=== PATIENT | male | born 1955 | race Caucasian/White ===

== ENCOUNTER 2021-03-13 11:02 | Outpatient (REF) | payer OTHER, SELFPAY ==
[2021-03-13 13:57] LABS: MANUAL DIFF FLAG NO
[2021-03-13 14:11] LABS: Basophils Percent Auto 0.2 % (0-2); Eosinophils Percent Auto 0.1 % (0-4); Hematocrit 45.3 % (42-52); Hemoglobin 14.7 g/dl (14.0-18.0); Imm Gran Abs Auto 0.12 X10*3/uL (0.00-0.03); Imm Gran Pct Auto 1.5 % (0.0-0.4); Lymphocytes Absolute Auto 0.8 X10*3/uL (1.2-4.9); Lymphocytes Percent Auto 9.2 % (20-40); Mean Corpuscular HGB Conc 32.5 g/dl (31.0-36.0); Mean Corpuscular Hemoglobin 29.2 pg (27.0-33.0); Mean Corpuscular Volume 89.9 fL (80-98); Mean Platelet Volume 10.5 fL (9.4-12.4); Monocytes Absolute Auto 0.6 X10*3/uL (0.1-1.2); Monocytes Percent Auto 6.8 % (2-11); Neutrophils Absolute Auto 6.8 X10*3/uL (2.0-8.3); Neutrophils Percent Auto 82.2 % (45-73); Platelet Count 247 X10*3/uL (160-400); Red Blood Count 5.04 X10*6/uL (4.60-5.80); Red Cell Distribution Width 13.2 % (11.0-16.0); White Blood Count 8.2 X10*3/uL (4.8-10.8)
[2021-03-13 14:19] LABS: Alanine Aminotransferase 45 U/L (0-40); Alkaline Phosphatase 67 U/L (39-117); Anion Gap 12 (12-20); Aspartate Amino Transferase 29 U/L (5-37); Bilirubin Total 0.8 mg/dL (0.0-1.0); Blood Urea Nitrogen 9 mg/dL (9-16); Calcium 9.2 mg/dL (8.4-10.2); Carbon Dioxide 27 mmol/L (22-29); Chloride 107 mmol/L (96-108); Cholesterol 213 mg/dL; Estimated Glomerular Filt Rate > 60; Glucose Fasting 110 mg/dL (60-99); HDL Cholesterol 80 mg/dL; LDL Cholesterol Calculated 120 mg/dl; Potassium 4.4 mmol/L (3.3-5.1); Sodium 142 mmol/L (135-145); Total Protein 7.6 g/dL (6.5-8.0); Triglycerides 67 mg/dL; Uric Acid 5.4 mg/dL (3.4-7.0)
== END 2021-03-13 11:03 | disposition home or self-care (01) ==
LOC: HO.10HDL 11:02
PROVIDERS: Visit Provider Internal Medicine
DX: Z00.00 Encounter for general adult medical examination without abnormal findings (principal)
CPT/HCPCS: 36415; 80053; 80061; 84550; 85025

== ENCOUNTER 2022-07-09 10:23 | Outpatient (REF) | payer OTHER, SELFPAY ==
--- NOTE | ~2022-07-09 | XR_ITS ---
EXAMINATION: XR SINUSES CLINICAL INFORMATION: Sinus pressure COMPARISON: None TECHNIQUE: 4 views. FINDINGS: Paranasal sinuses appear clear without air-fluid levels. No fractures are identified. No radiodense foreign bodies. XR/XR sinus min 3V IMPRESSION: Unremarkable examination.
--- NOTE | ~2022-07-09 | XR_ITS ---
EXAMINATION: XR CHEST CLINICAL INFORMATION: Cough. COMPARISON: X-ray 11/05/2018 TECHNIQUE: 2 views of the chest were obtained. FINDINGS: The cardiomediastinal silhouette is within normal limits. The lungs are well expanded. There is hazy opacity in the medial aspect right lung base, appearing more prominent as compared to previous, which could represent a subtle infiltrate in this region. Otherwise, no additional focal consolidation, edema, or effusion. No pneumothorax. No acute osseous abnormality. XR/XR chest 2V IMPRESSION: Hazy opacity in the medial aspect right lung base could represent a subtle infiltrate. Recommendation is for a follow-up chest series to be obtained following treatment and/or resolution of symptoms to assure resolution of this appearance.
== END 2022-07-09 10:24 | disposition home or self-care (01) ==
LOC: HO.XRAY 10:23
PROVIDERS: PCP Internal Medicine; Visit Provider Internal Medicine
DX: R05.9 Cough, unspecified (principal); R09.81 Nasal congestion
CPT/HCPCS: 70220; 71046

== ENCOUNTER 2024-12-01 11:26 | Outpatient (AMB) | payer OTHER, MEDICARE, SELFPAY ==
--- NOTE | 2024-12-01 11:19 | MHC.PC.OV ---
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 He has not been seen in the office since 06/2022. Hypertension-continues on lisinopril 5 mg daily. Blood pressure in the office today 120/82. HLD- continues on simvastatin 20mg daily. Last LDL 120 Gout- no recent flares. continues on allopurinol Asthma- taking singulair with occassional albuterol use. Reporting a chronic productive cough ongoing for several years with occasional wheezing. No sob/wheezing. No chest pain. No exposure to noxious substances. No hx smoking. Concerns: Reporting 2-3 times per month experiencing globus sensation when swallowing resulting in vomiting. Belching helps with symptoms. No other dysphagia. Denies heartburn. Itchy ears- ongoing several months. No otalgia, otorrhea. He does have history of environmental allergies but has not taken any antihistamines. He has used [id number]-[id number]-[id number] eardrops without relief reports this is constant Tinnitus-denies any hearing loss, vertigo, headaches, otalgia. No prolonged exposure to loud noises Health maintenance: Last screening colonoscopy age 61 per the patient. Report unavailable for review. He reports normal findings suggesting 10 year follow-up Due for screening PSA ROS: General: No fevers, malaise, unintentional weight loss HEENT: No blurred vision, diplopia. No sore throat, nasal congestion, rhinorrhea, sinus pain, ear pain. See HPI Cardiovascular: No chest pain, palpitations, or leg edema Respiratory: See HPI GI: No abdominal pain, nausea. See HPI : No dysuria, hematuria, increased urinary frequency, decreased urinary output Neuro: No headaches, weakness, paresthesias Skin: No rashes or lesions EXAM: Constitutional - Awake and Alert, No apparent distress Eyes - PERRLA, EOMI. Bilateral corneal clouding, corneal arcus Cardiovascular - S1S2, RRR, No edema Respiratory - Normal lung expansion, Normal respiratory effort, No respiratory distress, CTA bilaterally Extremities - no calf tenderness bilaterally, no swelling Skin - Warm/Dry Neurological - Alert & oriented x3, CN II-XII in tact, 5/5 strength BUE and BLE Psychological - Appropriate affect itchy eats, ringing. OTC drops not helping x3 months constant. no hearing loss, vertigo. does have allergies. occ claritin constant cough- productive. no xob, wheezing ongoing x several years. used albuterol several times. occ wheeze. no smoking hx. no exposures to noxious substances heartburn every 2-3 weeks, belching globus sensation then vomiting. [facility] Medical History (Updated 12/01/24 @ 12:18 by DALILA Rocha) Hyperlipidemia Asthma Gout Hypertension Questionnaire PHQ-9 Over the last 2 weeks, how often have you been bothered by any of the following problems? 1. Little interest or pleasure in doing things: not at all 2. Feeling down, depressed, or hopeless: not at all 3. Trouble falling or staying asleep, or sleeping too much: several days 4. Feeling tired or having little energy: several days 5. Poor appetite or overeating: not at all 6. Feeling bad about yourself - or that you are a failure or have let yourself or your family down: not at all 7. Trouble concentrating on things, such as reading the newspaper or watching television: not at all 8. Moving or speaking so slowly that other people could have noticed. Or the opposite - being so fidgety or restless that you have been moving around a lot more than usual: not at all 9. Thoughts that you would be better off or of hurting yourself in some way: not at all Total score: 2 Source: Developed by Drs. Rambo Chaudhary, Lisset Dean, Arsenio Galo and colleagues, with an educational yessi from [employer]. Thrive Questionnaire Date Thrive assessed: 12/01/24 I am a: Patient What is your living situation today?: I have a steady place to live Within the past 12 months, did the food you bought not last and you didn't have the money to get more?: Never true Within the past 12 months, did you worry whether your food would run out before you got money to buy more?: Never true Do you have trouble paying for medicines?: No Do you have trouble getting transportation to medical appointments?: No Do you have trouble paying your heating and electricity bill?: No Do you have trouble taking care of your child, family member or friend?: No Do you have trouble with day-to-day activities such as bathing, preparing meals, shopping, managing finances, etc.?: No Are you currently unemployed and looking for a job?: No Are you interested in more education?: No Please select the resources that you would like help with: None THRIVE Score: 0 PEG-7 AMB Questionnaire PEG-7 Date PEG - 7 assessed: 12/01/24 Feeling nervous, anxious, or on edge: 0 = Not at all Not being able to stop or control worryin = Not at all Worrying too much about different things: 0 = Not at all Trouble relaxin = Not at all Being so restless that it is hard to sit still: 0 = Not at all Becoming easily annoyed or irritable: 0 = Not at all Feeling afraid as if something awful might happen: 0 = Not at all Total PEG-7 score (0-4 normal; 5-9 mild; 10-14 moderate; 15-21 severe): 0 Source: Developed by Drs. Rambo Chaudhary, Lisset Dean, Arsenio Galo and colleagues, with an educational yessi from [employer]. Physical exam (Primary Care) Vital Signs: Last Vital Signs Temp 97.7 F 12/01/24 11:32 Pulse 116 H 12/01/24 11:32 Resp 16 12/01/24 11:32 BP 120/82 12/01/24 11:32 Pulse Ox 98 12/01/24 11:32 Oxygen Delivery Method Room Air 12/01/24 11:32 BMI result Body Mass Index 33.1 PHQ-9: PHQ-9 Score PHQ-9: Total score 2 12/01/24 12:10 Thrive Assessment: Date of Thrive Assessment Date Thrive assessed 12/01/24 12/01/24 11:19 Coding Level of Care Code New Pt Level 4 (36165) Complex EM visit Add On G2211 Diagnoses Hypertension I10 Gout M10.9 Asthma J45.909 Hyperlipidemia E78.5 Refractory chronic cough R05.3 Corneal clouding H17.9 Tinnitus H93.19 Globus sensation R09.A2 Assessment & Plan Assessment & Plan (1) Hypertension: Code(s): I10 - Essential (primary) hypertension Category: Medical Plan: Controlled. Continue lisinopril 5 mg daily. Low-sodium diet (2) Gout: Code(s): M10.9 - Gout, unspecified Category: Medical Plan: Stable. Continue allopurinol 100 mg b.i.d.. (3) Asthma: Code(s): J45.909 - Unspecified asthma, uncomplicated Category: Medical Plan: Given chronic cough, question if this is actually COPD. He can continue Singulair. Will also prescribe Breo inhaler and can use albuterol as needed. PFT ordered. (4) Hyperlipidemia: Code(s): E78.5 - Hyperlipidemia, unspecified Category: Medical Plan: Lipid panel o ordered. Continue simvastatin (5) Refractory chronic cough: Code(s): R05.3 - Chronic cough Category: Medical Plan: Chronic productive cough. Less likely to be related to STEVEN inhibitors given productive nature. Question possible diagnosis of COPD. Referred for PFT. Prescribed Breo inhaler and can use albuterol only as needed for shortness of breath and wheezing. Can continue Singulair. Again given chronicity, we will also check chest CT (6) Corneal clouding: Code(s): H17.9 - Unspecified corneal scar and opacity Category: Medical Plan: Denies any vision changes, however appears consistent with possible cataracts. Referred to Ophthalmology. Given corneal arcus, will also assess liver function and lipids. (7) Tinnitus: Code(s): H93.19 - Tinnitus, unspecified ear Category: Medical Plan: Referred to ENT (8) Globus sensation: Code(s): R09.A2 - Foreign body sensation, throat Category: Medical Plan: Reviewed last barium swallow from 2019 which appears to have diagnosis of esophagitis. He is referred to Gastroenterology for further evaluation and management. Also prescribed omeprazole to be taken every morning. Can use a small amount of hydrocortisone cream to help with pruritus in the ears and recommend loratadine. Plan Follow-up in 6 months. Referrals as below. Labs to be completed today. Chest CT. Referred for PFT. Orders: Orders ANCA Vasculitides Today E78.5 - Hyperlipidemia, unspecified, I10 - Essential (primary) hypertension, R74.8 - Abnormal levels of other serum enzymes, Z12.5 - Encounter for screening for malignant neoplasm of prostate, Z13.1 - Encounter for screening for diabetes mellitus Basic Metabolic Panel Today E78.5 - Hyperlipidemia, unspecified, I10 - Essential (primary) hypertension, R74.8 - Abnormal levels of other serum enzymes, Z12.5 - Encounter for screening for malignant neoplasm of prostate, Z13.1 - Encounter for screening for diabetes mellitus Lipid Panel Today E78.5 - Hyperlipidemia, unspecified, I10 - Essential (primary) hypertension, R74.8 - Abnormal levels of other serum enzymes, Z12.5 - Encounter for screening for malignant neoplasm of prostate, Z13.1 - Encounter for screening for diabetes mellitus Liver Panel Today E78.5 - Hyperlipidemia, unspecified, I10 - Essential (primary) hypertension, R74.8 - Abnormal levels of other serum enzymes, Z12.5 - Encounter for screening for malignant neoplasm of prostate, Z13.1 - Encounter for screening for diabetes mellitus PFT pulmonary function test Today R05.3 - Chronic cough Hemoglobin A1c Today E78.5 - Hyperlipidemia, unspecified, I10 - Essential (primary) hypertension, R74.8 - Abnormal levels of other serum enzymes, Z12.5 - Encounter for screening for malignant neoplasm of prostate, Z13.1 - Encounter for screening for diabetes mellitus Prostate Specific Antigen Today E78.5 - Hyperlipidemia, unspecified, I10 - Essential (primary) hypertension, R74.8 - Abnormal levels of other serum enzymes, Z12.5 - Encounter for screening for malignant neoplasm of prostate, Z13.1 - Encounter for screening for diabetes mellitus CT chest wo IV con Today R05.3 - Chronic cough Referrals Gastroenterology Referral R09.A2 - Foreign body sensation, throat, R13.10 - Dysphagia, unspecified Ear/Nose/Throat Referral H93.19 - Tinnitus, unspecified ear Ophthalmology Referral H17.9 - Unspecified corneal scar and opacity, H18.419 - Arcus senilis, unspecified eye Medications: New fluticasone furoate-vilanterol 100-25 mcg/dose (Breo Ellipta) 1 inh inhalation DAILY 60 ea 2RF albuterol sulfate 90 mcg/actuation 2 puffs inhalation Q6H PRN 8.5 grams 0RF shortness of breath or wheezing hydrocortisone 1% (Anti-Itch (hydrocortisone)) Apply small amount on qtip and gently apply to external ears 1 appl topical BID PRN 28.4 grams 0RF skin irritation
[2024-12-01 11:32] VITALS: BP 120/82; PULSE 116; RESP 16; TEMP 36.5; O2SAT 98; BMI 33.1
[2024-12-01 12:20] VITALS: PULSE 91
--- OUTSIDE RECORDS SUMMARY | 2024-12-01 12:23 | XMS_ITS | Patient Health Record ---
[facility] Address [address] [address] Care Team Providers Care Python Engineer Name Role Phone Miya Driscoll Unavailable [phone] Reason For Referral No Information Medications Medication SIG (Take, Route, Frequency, Duration) Notes Start Date End Date Status Lipitor Active Indomethacin Active Percocet Active Problems No Known Problems Plan Of Treatment No Information Insurance Providers Payer Name Payer Address Payer Phone Subscriber Number Group Number Insured Name Patient Relationship to Insured Coverage Start Date Coverage End Date [facility] [address] [facility] [place] [phone] [id number] Galileo Ballard Self - patient is the insured Medical (General) History Medical History History ICD Code measles Gout asthma
== END 2024-12-01 12:02 | disposition home or self-care (01) ==
LOC: HO.HMCHD 11:26
PROVIDERS: PCP Internal Medicine; Visit Provider Physician Assistant
DX: I10 Essential (primary) hypertension (principal); M10.9 Gout, unspecified; J45.909 Unspecified asthma, uncomplicated; E78.5 Hyperlipidemia, unspecified; R05.3 Chronic cough; H17.9 Unspecified corneal scar and opacity; H93.19 Tinnitus, unspecified ear; R09.A2 Foreign body sensation, throat

== ENCOUNTER 2024-12-01 12:10 | Outpatient (REF) | payer OTHER, MEDICARE, SELFPAY ==
[2024-12-01 13:50] LABS: Alanine Aminotransferase 52 U/L (0-40); Albumin Level 4.3 g/dL (3.5-5.0); Anion Gap 13 (12-20); Aspartate Amino Transferase 50 U/L (5-37); Bilirubin Direct 0.5 mg/dL (0.0-0.5); Bilirubin Total 1.1 mg/dL (0.0-1.0); Blood Urea Nitrogen 14 mg/dL (9-16); Calcium 9.2 mg/dL (8.4-10.2); Carbon Dioxide 27 mmol/L (22-29); Chloride 105 mmol/L (96-108); Cholesterol 176 mg/dL (<200); Estimated Glomerular Filt Rate > 60; Glucose Random 106 mg/dL (60-115); HDL Cholesterol 78 mg/dL (>40); LDL Cholesterol Calculated 83 mg/dL (<100); Potassium 4.3 mmol/L (3.3-5.1); Sodium 141 mmol/L (135-145); Total Protein 7.8 g/dL (6.5-8.0); Triglycerides 78 mg/dL (<150)
[2024-12-01 13:56] LABS: Alkaline Phosphatase 65 U/L (39-117)
[2024-12-01 14:02] LABS: Estimated Average Glucose 108 mg/dL; Hemoglobin A1C 136.2891 umol/L; Hemoglobin A1c % 5.4 % (<6.0); Total Hemoglobin (HGBA1C) 3882.0766 umol/L
[2024-12-01 14:09] LABS: Prostate Specific Antigen < 0.10 ng/mL (<0.05-4.0)
== END 2024-12-01 12:11 | disposition home or self-care (01) ==
LOC: HO.10HDL 12:10
PROVIDERS: Visit Provider Physician Assistant
DX: E78.5 Hyperlipidemia, unspecified (principal); I10 Essential (primary) hypertension; R74.8 Abnormal levels of other serum enzymes; Z12.5 Encounter for screening for malignant neoplasm of prostate; Z13.1 Encounter for screening for diabetes mellitus
CPT/HCPCS: 36415; 80048; 80061; 80076; 83036; 84153

== ENCOUNTER 2025-02-18 10:49 | Outpatient (REF) | payer MEDICARE, OTHER, SELFPAY ==
--- OUTSIDE RECORDS SUMMARY | 2025-02-18 10:51 | XMS_ITS | Patient Health Record ---
[facility] Address [address] [place] [address] Care Team Providers Care Hse Specialist Name Role Phone Miya Driscoll Unavailable [phone] Reason For Referral No Information Medications Medication SIG (Take, Route, Frequency, Duration) Notes Start Date End Date Status Lipitor Active Indomethacin Active Percocet Active Problems No Known Problems Plan Of Treatment No Information Insurance Providers Payer Name Payer Address Payer Phone Subscriber Number Group Number Insured Name Patient Relationship to Insured Coverage Start Date Coverage End Date [facility] [address] [facility] [place] [phone] [id number] Galileo Ballard Self - patient is the insured Medical (General) History Medical History History ICD Code measles Gout asthma
--- OUTSIDE RECORDS SUMMARY | 2025-02-18 10:51 | XMS_ITS | Patient Health Record ---
Author Organization [facility] Address [address] [place] [address] Care Team Providers Care Helper Coordinator Name Role Phone Kiah (RETIRED) Kyle PITTMAN Primary Care Provide r Unavailable Rambo Stuart Unavailable [phone] Reason For Referral No Information Medications Medication SIG (Take, Route, Frequency, Duration) Notes Start Date End Date Status Lisinopril 5 MG 1 tablet Orally Once a day Active Allopurinol 100 MG TAKE 2 TABLETS BY MOUTH EVERY DAY Oral for 90 Active Montelukast Sodium 10 MG 1 tablet in the evening Orally Once a day Active [facility] Omeprazole 20 MG 1 tablet Orally Onc e a day started 11/2018 Active Aspirin Adult Low Dose 81 MG 1 tablet Orally Once a day Active Immunizations Vaccine Route Administration Date Status Comme nts Influenza Unknown 12/10/2018 Refused Social History Tobacco Use: Social History Observation Description Date Details (start date - stop date) Never Smoker NA - NA Tobacco Use/Smoking Question Answer Notes Patient is a nonsmoker Alcohol Screen Question Answer Notes Did you have a drink contain ing alcohol in the past year? Yes How often did you have a dri nk containing alcohol in the past year? 2 to 3 times a week (3 points) How many drinks did you have on a typical day when you were drinking in the past year? 5 or 6 drinks (2 points) How often did you have 6 or more drinks on one occasion in the past year? Never (0 point) Points 5 Interpretation Positive Section Notes: Nonsmoker; occ. alcohol Nonsmoker; drinks approx 6 b eers 5x/week Nonsmoker; drinks approx 6 b eers 5x/week Problems Problem Type SNOMED Code ICD Code Onset Dates Problem Status W/U Status Risk Notes Problem [id number] Encounter for screening for malignant neoplasm of colon (Z12.11) Active confirmed Problem 683903966 Gastroesophageal reflux disease with esophagitis (K21.0) Active confirmed Problem 753429440 Gastroesophageal reflux disease, esophagitis presence not specified (K21.9) Active confirmed Problem 69006844 Hiatal hernia (K44.9) Active confirmed Problem 224111348 Abnormal barium swallow (R93.3) Active confirmed Problem 892068113617593 Pre-procedural examination (Z01.818) Active confirmed Problem 90990542 Hypertension, unspecified type (I10) Active confirmed Plan Of Treatment Future Test Test Name Order Date COLONOSCOPY 12/23/2017 UPPER GI ENDOSCOPY 12/10/2018 Insurance Providers Payer Name Payer Address Payer Phone Subscriber Number Group Number Insured Name Patient Relationship to Insured Coverage Start Date Coverage End Date [facility] [address] [place] [phone] [id number] MICHELLE JORDAN Self - patient is the insured Medical (General) History Medical History History ICD Code Seasonal allergies Hypertension Colonoscopy in 08/2007--hyper plastic polyp, diverticulosis, internal hemorrhoids Gout Denies [place],DM,CVA,Lung disease,renal dise ase Asthma Neg. screening colonoscopy in 01/2018 GERD--upper endoscopy in Nov revealed some erosive esophagitis and a moderate-sized hiatal hernia--biopsies were negative for Steven's esophagus and gastric biopsies were negative for H. pylori Surgical History Surgery Date(Month/Year) Tonsillectomy 1961 Deviated septum repair 1981 Bunionectomy 2010 Prostate removal at [facility] 2012
--- NOTE | 2025-02-18 10:54 | PFT_ITS ---
Indication: Cough Spirometry FEV1 to FVC 78%; FEV1 2.98 L; FVC 3.84 L. No significant response to bronchodilators noted. Lung Volumes Total lung capacity 77% predicted; residual volume 69% predicted; expiratory reserve volume 64% predicted Diffusion Capacity DLCO 95% predicted Comparisons None Interpretation No obstructive ventilatory defects appreciated. No significant response to bronchodilators noted. There is a restrictive ventilatory defect consistent with mild restrictive lung disease. Diffusing capacity is within normal limits. Clinical correlation warranted. MTDD
[2025-02-18 11:30] VITALS: PULSE 95; O2SAT 97
== END 2025-02-18 10:50 | disposition home or self-care (01) ==
LOC: HO.RESP 10:49
PROVIDERS: PCP Physician Assistant; Visit Provider Physician Assistant
DX: R05.3 Chronic cough (principal)
CPT/HCPCS: 94010; 94640; 94727; 94729

== ENCOUNTER → 2025-02-18 10:54 | Outpatient (BNV) | payer MEDICARE, OTHER, SELFPAY | PROVIDERS: PCP Physician Assistant; Visit Provider Hospitalist | DX: R05.9 Cough, unspecified (principal) | CPT/HCPCS: 94060; 94727; 94729 ==

== ENCOUNTER 2025-03-11 07:12 | Outpatient (REF) | payer MEDICARE, OTHER, SELFPAY ==
--- NOTE | ~2025-03-11 | CT_ITS ---
EXAMINATION: CT CHEST WITHOUT IV CONTRAST INDICATION: R05.3 - Chronic cough COMPARISON: Comparison is made with the prior examination dated 02/24/2019. TECHNIQUE: Helical CT scan of the chest was performed without intravenous contrast. Coronal and sagittal reformatted images were generated and reviewed. This CT exam was performed with one or more of the following dose reduction techniques: automated exposure control, adjustment of the mA and/or kV according to patient size, use of iterative reconstruction technique. DLP: 237 mGy-cm CHEST: THYROID: The thyroid is unremarkable. LUNGS: There is subpleural scarring in the right upper lobe. A calcification is seen along the right major fissure (series 4, image 80). There is a stable 2 mm nodule in the right lower lobe (1, and a 3 mm nodule in the lingula change. No new pulmonary nodules or airspace opacities are identified. MEDIASTINUM: Again seen is a 1.1 cm paraesophageal lymph node. SUZANNE: Evaluation of the hilar regions is limited by lack of intravenous contrast material. CARDIOVASCULATURE: The heart is normal in size. There is no pericardial effusion. The thoracic aorta is normal in caliber. DEGREE OF CORONARY CALCIFICATION: severe PLEURA: There is no pleural effusion. No pneumothorax. MAIN AIRWAYS: The mainstem bronchi and proximal branches are patent. AXILLA: There is no axillary lymphadenopathy. BONES AND SOFT TISSUES: There is wall thickening of the distal esophagus without change. There is degenerative disc disease of the spine. UPPER ABDOMEN: The liver demonstrates heterogeneously decreased attenuation consistent with steatosis. The visualized portions of the spleen and adrenal glands have an unremarkable unenhanced appearance. CT/CT chest wo IV con IMPRESSION: 1. Mild subpleural scarring. No acute pulmonary abnormality is identified. 2. Persistent wall thickening of the distal esophagus with an associated 1.1 cm paraesophageal lymph node. 3. Hepatic steatosis. 4. Severe coronary arterial calcification. Electronically signed by: Rambo Murillo MD 03/11/2025 08:21 AM EDT
--- OUTSIDE RECORDS SUMMARY | 2025-03-11 07:14 | XMS_ITS | Patient Health Record ---
Author Organization [facility] Address [address] [address] Care Team Providers Care Supervisor/Port Director Name Role Phone Miya Driscoll Unavailable [phone] Reason For Referral No Information Medications Medication SIG (Take, Route, Frequency, Duration) Notes Start Date End Date Status Lipitor Active Indomethacin Active Percocet Active Problems No Known Problems Plan Of Treatment No Information Insurance Providers Payer Name Payer Address Payer Phone Subscriber Number Group Number Insured Name Patient Relationship to Insured Coverage Start Date Coverage End Date [facility] [address] [facility] [place] [id number] Galileo Ballard Self - patient is the insured Medical (General) History Medical History History ICD Code measles Gout asthma
--- OUTSIDE RECORDS SUMMARY | 2025-03-11 07:15 | XMS_ITS | Patient Health Record ---
Author Organization [facility] Address [address] [place] [address] Care Team Providers Care Lactation Coordinator Name Role Phone Kiah (RETIRED) Kyle PITTMAN Primary Care Provide r Unavailable Rambo Stuart Unavailable [phone] Reason For Referral No Information Medications Medication [...] Problem Status W/U Status Risk Notes Problem 114696481 Encounter for screening for malignant neoplasm of colon (Z12.11) Active confirmed Problem 728379028 Gastroesophageal reflux disease with esophagitis (K21.0) Active confirmed Problem 336749017 Gastroesophageal reflux disease, esophagitis presence not specified (K21.9) Active confirmed Problem 76089363 Hiatal hernia (K44.9) Active confirmed Problem 172406925 Abnormal barium swallow (R93.3) Active confirmed Problem 677195498289772 Pre-procedural examination (Z01.818) Active confirmed Problem 68524390 Hypertension, unspecified type (I10) Active confirmed Plan Of Treatment Future Test Test Name Order Date COLONOSCOPY 12/23/2017 UPPER GI ENDOSCOPY 12/10/2018 Insurance Providers Payer Name Payer Address Payer Phone Subscriber Number Group Number Insured Name Patient Relationship to Insured Coverage Start Date Coverage End Date [facility] [address] [place] [phone] [id number] MICHELLE JORDAN Self - patient is the insured Medical (General) History Medical History History ICD Code Seasonal allergies Hypertension Colonoscopy in 08/2007--hyper plastic polyp, diverticulosis, internal hemorrhoids Gout Denies [place],DM,CVA,Lung disease,renal dise ase Asthma Neg. screening colonoscopy in 01/2018 GERD--upper endoscopy in Nov revealed some erosive esophagitis and a moderate-sized hiatal hernia--biopsies were negative for Steven's esophagus and gastric biopsies were negative for H. pylori Surgical History Surgery Date(Month/Year) Tonsillectomy 1961 Deviated septum repair 1981 Bunionectomy 2010 Prostate removal at [facility] 2012
== END 2025-03-11 07:13 | disposition home or self-care (01) ==
LOC: HO.CT 07:12
PROVIDERS: PCP Physician Assistant; Visit Provider Physician Assistant
DX: R05.3 Chronic cough (principal)
CPT/HCPCS: 71250

== ENCOUNTER → 2025-03-11 07:13 | Outpatient (BNV) | payer MEDICARE, OTHER, SELFPAY | PROVIDERS: PCP Physician Assistant; Visit Provider Radiology Diagnostic Radiology | DX: R91.1 Solitary pulmonary nodule (principal) | CPT/HCPCS: 71250 ==

== ENCOUNTER 2025-05-24 08:47 | Outpatient (AMB) | payer MEDICARE, OTHER, SELFPAY ==
--- NOTE | 2025-05-24 08:51 | A.OFFPC_ITS ---
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 Required: No Accompanied by: Self / Same As Patient Allergies No Known Allergies Allergy (Verified 05/24/25 08:51) Tobacco use date assessed: 05/24/25 Fall risk assessment: No Falls in past year Last assessed Fall Risk: 05/24/25 Dental Screening Dental Screen Date: 05/24/25 Did you have a dental visit in the last 12 months?: Yes Did you have a dental problem in the last 6 months where you did not have access to dental care?: No Was dental information given to patient?: Patient has dentist HPI HPI Comments History of Present Illness Details 68-year-old male with history of hyperte nsion, gout, asthma, hyperlipidemia presents to the office today for management of chronic conditions as well as to establish care. He has not been seen in the office since 06/2022. Hypertension-continues on lisinopril 5 mg daily. Blood pressure in the office today 136/82 HLD- continues on simvastatin 20mg daily. Last LDL 83 Gout- no recent flares. continues on allopurinol Asthma- taking singulair with rare albuterol use. On breo. Reporting a chronic productive cough ongoing for several years with occasional wheezing. No sob. No chest pain. No exposure to noxious substances. No hx smoking. GERD/globus sensation-following with Dr. Stuart. On omeprazole and dietary management. Weight loss was recommended and was advised to discontinue beer altogether and eat smaller portions. Recommending repeat colonoscopy in 2027. Advised to consider lisinopril as cause of chronic cough rather than GI etiology Chronic dry cough- not GI per Dr. Stuart. ?Lisinopril. Occ with a wheeze and mucus. Very annoying. Has upcoming pulm appt next month. No history of smoking. Denies PND Concerns: Chronic cough as above. Health maintenance: Last screening colonoscopy 2017 per the patient. Report unavailable for review. He reports normal findings suggesting 10 year follow-up Due for screening PSA ROS: General: No fevers, malaise, unintentional weight loss HEENT: No blurred vision, diplopia. No sore throat, nasal congestion, rhinorrhea, sinus pain, ear pain. See HPI Cardiovascular: No chest pain, palpitations, or leg edema Respiratory: See HPI GI: No abdominal pain, nausea. See HPI : No dysuria, hematuria, increased urinary frequency, decreased urinary output Neuro: No headaches, weakness, paresthesias Skin: No rashes or lesions EXAM: Constitutional - Awake and Alert, No apparent distress Eyes - PERRLA, EOMI. Bilateral corneal clouding, corneal arcus Cardiovascular - S1S2, RRR, No edema Respiratory - Normal lung expansion, Normal respiratory effort, No respiratory distress, CTA bilaterally Extremities - no calf tenderness bilaterally, no swelling Skin - Warm/Dry Neurological - Alert & oriented x3, CN II-XII in tact, 5/5 strength BUE and BLE Psychological - Appropriate affect [facility] Medical History (Updated 03/14/25 @ 15:36 by DALILA Rocha) Hyperlipidemia Asthma Gout Hypertension Surgical History (Updated 12/01/24 @ 16:00 by Mary Henriquez) History of colonoscopy (~02/20/18) Social History Housing: House Patient Tobacco Use Status: Never used Tobacco e-Cigarette/Vaping Use: Never Used service: No Current occupational status: retired Questionnaire Thrive Questionnaire Date Thrive assessed: 12/01/24 AUDIT C Alcohol Use Questionnaire (AUDIT-C) 1. How often do you have a drink containing alcohol?: 4 or more times a week 2. How many drinks containing alcohol do you have on a typical day when you are drinking?: 5 or 6 3. How often do you have six or more drinks on one occasion?: Weekly Total Score: 9 PEG-7 AMB Questionnaire PEG-7 Date PEG - 7 assessed: 12/01/24 Source: Developed by Drs. Rambo Chaudhary, Lisset Dean, Arsenio Galo and colleagues, with an educational yessi from [employer]. Physical exam (Primary Care) Vital Signs: Last Vital Signs Temp 97.4 F 05/24/25 08:56 Pulse 99 05/24/25 08:56 Resp 20 05/24/25 08:56 BP 136/82 05/24/25 08:56 Pulse Ox 96 05/24/25 08:56 Oxygen Delivery Method Room Air 05/24/25 08:56 BMI result Body Mass Index 34.5 Tobacco/Smoking Status: Tobacco use Status Tobacco use date assessed 05/24/25 05/24/25 08:58 Patient Tobacco Use Status Never used Tobacco 05/24/25 08:58 e-Cigarette/Vaping Use Never Used 05/24/25 08:58 Thrive Assessment: Date of Thrive Assessment Date Thrive assessed 12/01/24 05/24/25 08:53 Coding Level of Care Code Est Pt Level 4 (08395) Complex visit Add On G2211 Diagnoses Hypertension I10 Asthma J45.909 Hyperlipidemia E78.5 Refractory chronic cough R05.3 Globus sensation R09.A2 Assessment & Plan Assessment & Plan (1) Hypertension: Code(s): I10 - Essential (primary) hypertension Category: Medical Plan: Controlled. Change lisinopril to amlodipine 5 mg daily due to chronic cough Low-sodium diet (2) Asthma: Code(s): J45.909 - Unspecified asthma, uncomplicated Category: Medical Plan: Given chronic cough, question if this is actually COPD. He can continue Singulair. Will also prescribe Breo inhaler and can use albuterol as needed. Follow up with pulmonology as scheduled (3) Hyperlipidemia: Code(s): E78.5 - Hyperlipidemia, unspecified Category: Medical Plan: Lipid panel ordered. Continue simvastatin (4) Refractory chronic cough: Code(s): R05.3 - Chronic cough Category: Medical Plan: Chronic productive cough. Less likely to be related to STEVEN inhibitors given productive nature, however given GI recommendations, discontinue lisinopril, initiate amlodipine. Can also follow-up with pulmonology. Continue Singulair as well as adding Zyrtec or Claritin (5) Globus sensation: Code(s): R09.A2 - Foreign body sensation, throat Category: Medical Plan: Reviewed last note from Dr. Stuart. Continue omeprazole as well as managing diet to reduce acid reflux. Avoid alcohol. Plan Follow-up in 6 months with labs completed prior to visit Orders: Orders Basic Metabolic Panel 6 Months E78.5 - Hyperlipidemia, unspecified, I10 - Essential (primary) hypertension Lipid Panel 6 Months E78.5 - Hyperlipidemia, unspecified, I10 - Essential (primary) hypertension Liver Panel 6 Months E78.5 - Hyperlipidemia, unspecified, I10 - Essential (primary) hypertension Medications: New amlodipine 5 mg PO DAILY 90 tabs 1RF Discontinued lisinopril Discontinued Reason: Doctor's Order 5 mg PO DAILY 90 tabs 1RF
[2025-05-24 08:56] VITALS: BP 136/82; PULSE 99; RESP 20; TEMP 36.3; O2SAT 96; BMI 34.5
== END 2025-05-24 09:16 | disposition home or self-care (01) ==
LOC: HO.HMCHD 08:47
PROVIDERS: PCP Physician Assistant; Visit Provider Physician Assistant
DX: I10 Essential (primary) hypertension (principal); J45.909 Unspecified asthma, uncomplicated; E78.5 Hyperlipidemia, unspecified; R05.3 Chronic cough; R09.A2 Foreign body sensation, throat

== ENCOUNTER → 2025-05-24 08:47 | Outpatient (BNVA) | payer MEDICARE, OTHER, SELFPAY | PROVIDERS: PCP Physician Assistant; Visit Provider Physician Assistant | DX: I10 Essential (primary) hypertension (principal); E78.5 Hyperlipidemia, unspecified; M10.9 Gout, unspecified; J45.909 Unspecified asthma, uncomplicated; K21.9 Gastro-esophageal reflux disease without esophagitis; R05.3 Chronic cough; R09.A2 Foreign body sensation, throat; Z76.89 Persons encountering health services in other specified circumstances | CPT/HCPCS: 99212 ==

== ENCOUNTER 2025-06-13 14:41 | Outpatient (REF) | payer MEDICARE, OTHER, SELFPAY | END 2025-06-13 14:42 | disposition home or self-care (01) | LOC: HO.LNP 14:41 | PROVIDERS: PCP Physician Assistant; Referring Provider Physician Assistant; Visit Provider Hospitalist | DX: J41.1 Mucopurulent chronic bronchitis (principal); T78.40XA Allergy, unspecified, initial encounter; K22.89 Other specified disease of esophagus; G47.33 Obstructive sleep apnea (adult) (pediatric); K21.9 Gastro-esophageal reflux disease without esophagitis; R91.1 Solitary pulmonary nodule | CPT/HCPCS: 87070; 87205; 99212 ==

== ENCOUNTER 2025-06-13 14:41 | Outpatient (AMB) | payer MEDICARE, OTHER, SELFPAY ==
--- NOTE | 2025-06-13 14:51 | MHC.OFFVIS ---
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 The patient is a 69-year-old gentleman with a chronic cough. The patient states that it has been coughing now for couple years. If not more. Moderate severity. His cough is usually productive in nature. He does expectorate whitish yellowish phlegm. He has been prescribed inhalers including Breo and short-acting beta agonist but does not seem like he is using it regularly. He has not had pulmonary function studies as of yet. The patient is a lifelong nonsmoker. No significant exposure to any fumes or toxins. Denies any significant exposure to farm animals or birds. 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 Nine lot of exposure that he is aware of. The patient also has been complaining of reflux disease. [id number] severity. So far the workup. She had had a chest x-ray and subsequently a CT scan of the chest. I did personally review the CAT scan with him. The patient does appear to have some interstitial changes primarily in the right hemithorax. Primarily in the periphery. In addition to that does have of bronchitis of the airways primarily in the bases. The esophagus appears to be thickened and there is some nirmal esophageal lymph nodes. The patient is scheduled to see GI. Will go ahead and request a barium swallow this time. We did talk about the likelihood of potential micro aspirations into the lungs and causing chronic bronchitis. Will go ahead and put him in a macrolide therapy as a promotility agent hopefully to decrease micro aspirations and also to help with the chronic bronchitis. He is going to try to sleep elevated as well. He is already taking a PPI and should continue with the reflux diet. The patient also has significant snoring. Does have an elevated [place] score of 11/24. His is concerned because is having apneic episodes. He is also waking up short of breath. Will go ahead and request a home sleep study at this time. The patient also will require pulmonary function studies but will wait for the results of the sleep study, Barium swallow, blood work and also will request a sputum culture. [facility] Medical History (Updated 06/13/25 @ 22:31 by Jeb Allen MD) ALEJANDRA (obstructive sleep apnea) Allergies Chronic bronchitis Hyperlipidemia Asthma Gout Hypertension Surgical History (Updated 12/01/24 @ 16:00 by Mary Henriquez) History of colonoscopy (~02/20/18) Social History Housing: House Patient Tobacco Use Status: Never used Tobacco e-Cigarette/Vaping Use: Never Used service: No Current occupational status: retired Review of Systems Const Reports daytime sleepiness, Reports fatigue, Reports snoring and Reports stops breathing during sleep Eyes Reports no additional complaints ENT Denies dysphagia and Reports nasal congestion Card Denies chest pain Resp Reports chest congestion, Reports cough, Reports snoring and Denies wheezing GI Denies dysphagia, Reports dyspepsia and Reports heartburn Musc Reports no additional complaints Skin/Breast Denies rash Neuro Reports no additional complaints Endo Reports fatigue Elmer/Lymph Reports no additional complaints Aller/Immun Denies wheezing Physical Exam Vital Signs: Last Vital Signs Pulse 89 06/13/25 14:52 BP 126/70 06/13/25 14:52 Pulse Ox 95 06/13/25 14:52 Oxygen Delivery Method Room Air 06/13/25 14:52 BMI result Body Mass Index 35.2 Const General: comfortable HEENT Head: Yes normocephalic Neck Neck: Yes supple Chest Chest palpation & inspection: normal inspection of the chest Resp Effort & Inspection: normal respiratory effort Auscultation: diminished lung sounds Cardio Heart sounds: S1 normal heart sound present and S2 normal heart sound present GI Palpation (GI): Soft to palpation Skin General skin exam: no rashes or lesions noted Extrem General: Yes no clubbing, cyanosis or edema Assessment & Plan Assessment & Plan (1) Chronic bronchitis: Code(s): J42 - Unspecified chronic bronchitis Category: Medical Qualifiers: Chronic bronchitis type: mucopurulent Qualified Code(s): J41.1 - Mucopurulent chronic bronchitis (2) Allergies: Code(s): T78.40XA - Allergy, unspecified, initial encounter Category: Medical Qualifiers: Encounter type: initial encounter Qualified Code(s): T78.40XA - Allergy, unspecified, initial encounter (3) Esophageal thickening: Code(s): K22.89 - Other specified disease of esophagus Category: Medical (4) ALEJANDRA (obstructive sleep apnea): Code(s): G47.33 - Obstructive sleep apnea (adult) (pediatric) Category: Medical Plan continue Breo short-acting beta agonist as needed start azithromycin Friday as a promotility agent reflux diet she has sleep elevated home sleep study blood work sputum culture pending follow-up in 2-3 months Orders: Orders Immunoglobulin E Today J42 - Unspecified chronic bronchitis, T78.40XA - Allergy, unspecified, initial encounter [place] barium swallow Today K21.9 - Gastro-esophageal reflux disease without esophagitis, K22.89 - Other specified disease of esophagus ECG 12 lead EKG Today J44.9 - Chronic obstructive pulmonary disease, unspecified RT home sleep study Today G47.33 - Obstructive sleep apnea (adult) (pediatric) Erythrocyte Sedimentation Rate Today J42 - Unspecified chronic bronchitis BUCKY Reflex Titer and Pattern Today J42 - Unspecified chronic bronchitis Complete Blood Count Auto Diff Today J42 - Unspecified chronic bronchitis, T78.40XA - Allergy, unspecified, initial encounter Immunoglobulins,IgG IgA IgM Today J42 - Unspecified chronic bronchitis, T78.40XA - Allergy, unspecified, initial encounter Resp Allergy Profile Region I Today J42 - Unspecified chronic bronchitis, R91.1 - Solitary pulmonary nodule, T78.40XA - Allergy, unspecified, initial encounter Sputum Cult + Gram stain Today R91.1 - Solitary pulmonary nodule Medications: New azithromycin Take 1 tablet on Friday/Friday/Friday 250 mg PO 3XW 12 tabs 1RF 28 days K21.9 - Gastro-esophageal reflux disease without esophagitis Coding Level of Care Code New Pt Level 4 (15955) Diagnoses Mucopurulent chronic bronchitis J41.1 Chronic bronchitis type: mucopurulent Allergy, initial encounter T78.40XA Encounter type: initial encounter Esophageal thickening K22.89 ALEJANDRA (obstructive sleep apnea) G47.33 Time Spent (min) 40
[2025-06-13 14:52] VITALS: BP 126/70; PULSE 89; O2SAT 95; BMI 35.2
--- OUTSIDE RECORDS SUMMARY | 2025-06-13 21:12 | XMS_ITS | Patient Health Record ---
Author Organization [facility] Address [address] [place] [id number] Care Team Providers Care Smoke Jumper Supervisor Name Role Phone FABIANA HUNT Primary Care Provider Rambo Ann [phone] Allergies No Known Allergies Reason For Referral No Information Medications Medication SIG (Take, Route, Frequency, Duration) Notes Start Date End Date Status Allopurinol 100 MG Tablet TAKE 2 TABLETS BY MOUTH EVERY DAY Oral; Duration: 90 Active Lisinopril 5 MG Tablet 1 tablet Orally O nce a day Active Montelukast Sodium 10 MG Tablet 1 tablet in the evening Orally Once a day Active Aspirin Adult Low Dose 81 MG Tablet Delayed Release 1 tablet Orally Once a day Active [facility] Omeprazole 20 MG Tablet Delayed Release 1 tablet Orally Once a day started 11/2018 Active Immunizations Vaccine Route Administration Date Status Comme nts Influenza Unknown 12/10/2018 Refused Influenza Unknown 04/12/2024 Administered Social History Tobacco Use: Social History Observation Description Date Details (start date - stop date) Never Smoker NA - NA Social History Drug/Alcohol: Social Info Question Answer Notes AUDIT-C (Standard) Did you have a drink containing alcohol in the past year? Yes How often did you have a drink containing alcohol in the past year? 2 to 3 times a week (3 points) How many drinks did you have on a typical day when you were drinking in the past year? 5 or 6 drinks (2 points) How often did you have six or more drinks on one occasion in the past year? 2 to 3 times per week (3 points) Points 8 Interpretation Positive Tobacco Use: Social Info Question Answer Notes Tobacco Use/Smoking Patient is a nonsmoker Additional Details Category Social Info Options Details Miscellaneous: Marital status: Occupation: retired, Section Notes: Nonsmoker; occ. alcohol Nonsmoker; drinks approx 6 b eers 5x/week Nonsmoker; drinks approx 6 b eers 5x/week Nonsmoker; drinks approx 6 b eers 5x/week Problems Problem Type SNOMED Code ICD Code Onset Dates Problem Status W/U Status Risk Notes Problem Screening for malignant neoplasm of colon (372082223) Encounter for screening for malignant neoplasm of colon (Z12.11) Active confirmed Problem Gastroesophageal reflux disease with esophagitis (396376905) Gastroesophageal reflux disease with esophagitis (K21.0) Active confirmed Problem Gastroesophageal reflux disease (828531264) Gastroesophageal reflux disease, esophagitis presence not specified (K21.9) Active confirmed Problem Hiatal hernia (66342411) Hiatal hernia (K44.9) Active confirmed Problem Barium swallow abnormal (803082555) Abnormal barium swallow (R93.3) Active confirmed Problem Pre-procedure evaluation check (700022877) Pre-procedural examination (Z01.818) Active confirmed Problem Essential hypertension (54655170) Hypertension, unspecified type (I10) Active confirmed Vital Signs Temperature 97.7 degrees Fahrenheit 04/12/2025 Blood pressure diastolic 01 mm Hg 04/12/2025 Height 73 in 04/12/2025 Blood pressure systolic 001 mm Hg 04/12/2025 Weight 258.2 lbs 04/12/2025 BMI 34.06 kg/m2 04/12/2025 Encounters Encounter Location Date Provider Diagnosis [facility] [address] [place] [id number] 04/12/2025 Rambo Stuart Encounter for screen ing for malignant neoplasm of colon Z12.11 ; Gastroesophageal reflux disease with esophagitis K21.0 and Hiatal hernia K44.9 [facility] [address] [place] [phone] 04/22/2025 Rambo Stuart Assessments Encounter Date Diagnosis (ICD Code) Assessment Notes Treatment Notes Treatment Clinical Notes Section Notes 04/12/2025 Encounter for screening for malignant neoplasm of colon (ICD-10 - Z12.11) Repeat colonoscopy in 2027 Archie Castaneda appears well. In regard to the occasional episodes of vomiting, which have been present for many years, I advised him that this sounds certainly consistent with some episodes of reflux and regurgitation in relation to probably overeating during a meal, as well as having at least several beers by his description. He is not having any particularly worrisome or new upper GI complaints. Based on his clinical history and good appearance, I do not think he requires an upper endoscopy at this time as he is not having any symptoms to suggest significant pathology, such as dysphagia, odynophagia, anorexia, or early satiety. We did have a detailed discussion today that he obviously needs to lose weight, eliminate all alcohol including beer, and eat smaller and healthier meals. I did advise him to continue his daily omeprazole. We did review that he will be due for a follow-up screening colonoscopy in 2027. In regard to his chronic cough, I did advise him to speak with you or Dr. Allen about whether or not this might be related to his use of lisinopril. I do not think this is GI related despite his history of reflux. He is scheduled to see Dr. Allen in April for that. If things remain well I will plan to see him on a PRN basis prior to his 2027 colonoscopy. I did advise him to certainly call sooner if he has any problems or questions I can be of assistance with. Archie was very comfortable with this plan. Thank you again for allowing me to participate in Archie's care. I shall continue to keep you advised of his progress as needed. 04/12/2025 Gastroesophageal reflux disease with esophagitis (ICD-10 - K21.0) Continue daily omeprazole. Try to watch diet, lose weight, eliminate beer, and eat small portions. PRNOverall, Archie appears well. In regard to the occasional episodes of vomiting, which have been present for many years, I advised him that this sounds certainly consistent with some episodes of reflux and regurgitation in relation to probably overeating during a meal, as well as having at least several beers by his description. He is not having any particularly worrisome or new upper GI complaints. Based on his clinical history and good appearance, I do not think he requires an upper endoscopy at this time as he is not having any symptoms to suggest significant pathology, such as dysphagia, odynophagia, anorexia, or early satiety. We did have a detailed discussion today that he obviously needs to lose weight, eliminate all alcohol including beer, and eat smaller and healthier meals. I did advise him to continue his daily omeprazole. We did review that he will be due for a follow-up screening colonoscopy in 2027. In regard to his chronic cough, I did advise him to speak with you or Dr. Allen about whether or not this might be related to his use of lisinopril. I do not think this is GI related despite his history of reflux. He is scheduled to see Dr. Allen in April for that. If things remain well I will plan to see him on a PRN basis prior to his 2027 colonoscopy. I did advise him to certainly call sooner if he has any problems or questions I can be of assistance with. Archie was very comfortable with this plan. Thank you again for allowing me to participate in Archie's care. I shall continue to keep you advised of his progress as needed. 04/12/2025 Hiatal hernia (ICD-10 - K44.9) PRNOverall, Archie appears well. In regard to the occasional episodes of vomiting, which have been present for many years, I advised him that this sounds certainly consistent with some episodes of reflux and regurgitation in relation to probably overeating during a meal, as well as having at least several beers by his description. He is not having any particularly worrisome or new upper GI complaints. Based on his clinical history and good appearance, I do not think he requires an upper endoscopy at this time as he is not having any symptoms to suggest significant pathology, such as dysphagia, odynophagia, anorexia, or early satiety. We did have a detailed discussion today that he obviously needs to lose weight, eliminate all alcohol including beer, and eat smaller and healthier meals. I did advise him to continue his daily omeprazole. We did review that he will be due for a follow-up screening colonoscopy in 2027. In regard to his chronic cough, I did advise him to speak with you or Dr. Allen about whether or not this might be related to his use of lisinopril. I do not think this is GI related despite his history of reflux. He is scheduled to see Dr. Allen in April for that. If things remain well I will plan to see him on a PRN basis prior to his 2027 colonoscopy. I did advise him to certainly call sooner if he has any problems or questions I can be of assistance with. Archie was very comfortable with this plan. Thank you again for allowing me to participate in Archie's care. I shall continue to keep you advised of his progress as needed. Plan Of Treatment Future Test Test Name Order Date COLONOSCOPY 12/23/2017 UPPER GI ENDOSCOPY 12/10/2018 Insurance Providers Payer Name Payer Address Payer Phone Subscriber Number Group Number Insured Name Patient Relationship to Insured Coverage Start Date Coverage End Date MEDICARE OF [place] [address] [place] [place] [address] [id number] MICHELLE JORDAN Self - patient is the insured [facility] [address] [facility] [place] [phone] [id number] NIKKIMICHELLE Caballero Self - patient is the insured Medical (General) History Medical History History ICD Code Seasonal allergies Hypertension Colonoscopy in 08/2007- hyper plastic polyp, diverticulosis, internal hemorrhoids Gout Denies [place],DM,CVA,renal disease Asthma Neg. screening colonoscopy in 01/2018 GERD- upper endoscopy in Nov revealed some erosive esophagitis and a moderate-sized hiatal hernia- biopsies were negative for Steven's esophagus and gastric biopsies were negative for H. pylori Surgical History Surgery Date(Month/Year) Tonsillectomy 1961 Deviated septum repair 1981 Bunionectomy 2010 Prostate removal at [facility] 2012
--- OUTSIDE RECORDS SUMMARY | 2025-06-13 21:12 | XMS_ITS | Patient Health Record ---
Author Organization [facility] Address [address] [place] [address] Care Team Providers Care Ore Washer Name Role Phone Miya Driscoll Unavailable [phone] Reason For Referral No Information Medications Medication SIG (Take, Route, Frequency, Duration) Notes Start Date End Date Status Lipitor Active Indomethacin Active Percocet Active Problems No Known Problems Plan Of Treatment No Information Insurance Providers Payer Name Payer Address Payer Phone Subscriber Number Group Number Insured Name Patient Relationship to Insured Coverage Start Date Coverage End Date [facility] [address] [facility] [place] [id number] [employer] Self - patient is the insured Medical (General) History Medical History History ICD Code measles Gout asthma
== END 2025-06-13 15:32 | disposition home or self-care (01) ==
LOC: HO.HPS 14:42
PROVIDERS: PCP Physician Assistant; Referring Provider Physician Assistant; Visit Provider Hospitalist
DX: J41.1 Mucopurulent chronic bronchitis (principal); T78.40XA Allergy, unspecified, initial encounter; K22.89 Other specified disease of esophagus; G47.33 Obstructive sleep apnea (adult) (pediatric)
CPT/HCPCS: 99214